=== PATIENT | female | born 1950 | race Caucasian/White ===

== ENCOUNTER → 2016-11-09 | Outpatient (REF) | payer OTHER | LOC: M LAB REF 12:24 | PROVIDERS: ATTEND Internal Medicine Medical Oncology | DX: D69.6 Thrombocytopenia, unspecified (principal) ==

== ENCOUNTER → 2018-06-06 | Outpatient (CLI) | payer MEDICARE | LOC: M RAD 12:48 | DX: Z12.2 Encounter for screening for malignant neoplasm of respiratory organs (principal); Z87.891 Personal history of nicotine dependence; R91.8 Other nonspecific abnormal finding of lung field; K75.3 Granulomatous hepatitis, not elsewhere classified | CPT/HCPCS: G0297 ==

== ENCOUNTER → 2019-01-13 | Outpatient (CLI) | payer MEDICARE ==
[~2019-01-13] MED LIST: AMLO5TAB6 PO; ATEN50TA2 PO; ATOR1TAB19 PO; CYMB60CA3 PO; ERGO500014 PO; ESTR125TA PO; FENO160T10 PO; FLON1SPR NARES; LEVO112T2 PO; LIDO5OIN19 TOP; LORA-243 PO; MONT10TA2 PO; OMEP-218 PO; SYMB80INH INH; TRAM50TA2 PO; VENTAER INH
--- NOTE | 2019-01-13 09:32 | REP ---
ULTRASOUND ABDOMEN: Real-time sonographic evaluation of abdomen is performed. The patient has had a prior cholecystectomy. There is no intrahepatic or extrahepatic biliary dilatation, common bile duct measuring 7 mm. Liver and pancreas demonstrate homogeneous echotexture with no gross mass. The spleen is not enlarged measuring 8.5 cm in length. Calcified granulomas are seen in the spleen. The kidneys are normal in size and echotexture, right kidney measuring 10.5 x 4.8 x 5.7 cm and left kidney 10.6 x 4.0 x 4.6 cm. There is no renal mass, hydronephrosis or nephrolithiasis. Abdominal aorta is normal in caliber with no aneurysm, proximally measuring 2.4 cm in maximum AP dimension and distally 1.6 cm. No ascites is seen. IMPRESSION: Status post cholecystectomy without free fluid or biliary dilatation. Calcified granulomas in the spleen. No splenomegaly. Electronically Signed by Eddie Bell MD 01/15/2019 09:52 A
== END ==
LOC: M RAD 07:35
PROVIDERS: ATTEND Internal Medicine Hematology & Oncology
DX: D47.3 Essential (hemorrhagic) thrombocythemia (principal); D72.829 Elevated white blood cell count, unspecified; Z90.49 Acquired absence of other specified parts of digestive tract

== ENCOUNTER → 2019-03-07 | Outpatient (CLI) | payer MEDICARE ==
[~2019-03-07] MED LIST changes: -ERGO500014 PO; +GASTROGRAFIN SOLUTION 30ML (Q9963) As Ordered ONE; +ISOVUE-370 76% 100ML VIAL (Q9967) As Ordered ONE; +LYRI225C PO; +VITA500045 PO
--- NOTE | 2019-03-07 15:53 | REP ---
HISTORY: Growing pain. COMPARISON: 08/07/2016 CONTRAST: 100 mL [id number] The pelvis bowel loops and their mesenteries are within normal limits. There is no free pelvis fluid or air. 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 This does compress the michael-right lateral urinary bladder, status quo and has seemingly a slight compressive effect on the sigmoid colon, status quo. No abnormal enhancing pelvic masses are present. There is no pelvic sidewall adenopathy. Bone window technique throughout the exam shows the osseous structures to be stable and intact. IMPRESSION: Increased pelvic adipose tissue, unchanged from the prior exam as described above. Electronically Signed by Aron Thomas DO 03/13/2019 02:35 P
== END ==
LOC: M RAD 12:06
PROVIDERS: ATTEND Internal Medicine Hematology & Oncology
DX: E65 Localized adiposity (principal)
CPT/HCPCS: 72193; Q9963; Q9967

== ENCOUNTER → 2019-06-11 | Outpatient (CLI) | payer MEDICARE ==
[~2019-06-11] MED LIST changes: -GASTROGRAFIN SOLUTION 30ML (Q9963) As Ordered ONE; -ISOVUE-370 76% 100ML VIAL (Q9967) As Ordered ONE
--- NOTE | 2019-06-11 18:24 | REP ---
Low-dose noncontrast CT study of the chest: Lung cancer screening study. History: Personal history of nicotine dependence. Comparison CT study is a screening exam from June 06, 2018. There is also a chest CT study from March 12, 2015 and another from August 25, 2013. Lastly, there is a screening exam from February 20, 2013. CT findings: There are scattered emphysematous changes throughout the upper lobes bilaterally as before. There has been no change in the two adjacent left upper lobe lung nodules in the interval since the 2013 prior exams. These appear to be calcified on today's study. No new pulmonary nodule is appreciated. There is a calcification again noted in the dome of the diaphragm which may be calcific pleural plaquing or a granulomatous calcification in the liver parenchyma at the dome of the diaphragm. There is mild vascular calcification visible. There are clips in the gallbladder fossa. Impression: Lung RADS category II benign findings. Repeat screening exam suggested 1 year. Emphysematous changes. Electronically Signed by Miguel Galdamez MD 06/11/2019 09:11 P
== END ==
LOC: M RAD 10:18
PROVIDERS: ATTEND Internal Medicine Pulmonary Disease
DX: Z12.2 Encounter for screening for malignant neoplasm of respiratory organs (principal); Z87.891 Personal history of nicotine dependence

== ENCOUNTER → 2020-06-30 | Outpatient (CLI) | payer MEDICARE ==
[~2020-06-30] MED LIST changes: +AMLO1TAB24 PO; -AMLO5TAB6 PO; +BUDE180INH INH; -MONT10TA2 PO; +MONT10TA4 PO; +SPIR1AER IN
--- NOTE | 2020-07-28 07:26 | REP ---
LOW-DOSE LUNG SCREENING CT CLINICAL: Nicotine dependence. COMPARISON: 06/11/2019. TECHNIQUE: Axial noncontrast images from the thoracic inlet to the upper abdomen using low-dose lung screening technique. FINDINGS: Moderate to advanced emphysematous changes primarily involving the bilateral upper lung zones along with minimal scarring/fibrosis and two small calcified left upper lobe nodules remain essentially stable. A calcification along the dome of the right diaphragm is unchanged. No acute consolidation or significant nodule/mass. No effusion. No pneumothorax. Mediastinal and hilar adenopathy is again suggested and essentially unchanged. Atherosclerotic changes to the thoracic aorta and coronary arteries again noted. IMPRESSION: 1. Emphysematous changes with scattered fibrosis and scarring along with small stable calcified granulomata again noted. 2. No significant nodule or mass. 3. Lung-RADS Category 2. Annual low dose surveillance recommended. MTDD
== END ==
LOC: M RAD 12:57
PROVIDERS: ATTEND Internal Medicine Pulmonary Disease
DX: F17.218 Nicotine dependence, cigarettes, with other nicotine-induced disorders (principal); R91.8 Other nonspecific abnormal finding of lung field

== ENCOUNTER → 2021-04-28 | Outpatient (CLI) | payer MEDICARE ==
[~2021-04-28] MED LIST changes: +ASMA1AER3 INH; +COVI100V IM; +ERGO500029 PO; +LEVO500T3 PO; +MONT10TA10 PO; -MONT10TA4 PO; +SUCR1TAB56 PO
--- NOTE | 2021-04-28 12:07 | REP ---
INDICATION: ABN FINDING OF LUNG COMPARISON: 06/30/2020 TECHNIQUE: Axial noncontrast images from the thoracic inlet to the upper abdomen with coronal and sagittal reformations. This CT examination was performed using the following dose reduction techniques: Automated exposure control, adjustment of mA and/or kv according to the patient's size, and use of iterative reconstruction technique. FINDINGS: Advanced COPD/emphysematous changes with bronchiectasis and scarring and few scattered calcified granulomata again noted. No acute consolidation, significant nodule or mass. No effusion. No pneumothorax. Tracheobronchial tree is patent. Mediastinal lymph nodes remain stable. Atherosclerotic changes to the thoracic aorta and coronary arteries again noted. Mild cardiomegaly without pericardial effusion. Surrounding musculoskeletal structures are intact. Limited upper abdomen demonstrates normal bilateral adrenal glands. IMPRESSION: 1. Relatively stable chronic COPD/emphysematous changes with bronchiectasis and scattered scarring. 2. No significant mediastinal or pleuroparenchymal process otherwise appreciated. <Electronically signed by Dc Lucio > 04/28/21 [id number]
== END ==
LOC: M RAD 11:28
PROVIDERS: ATTEND Internal Medicine Pulmonary Disease
DX: R91.8 Other nonspecific abnormal finding of lung field (principal); J44.9 Chronic obstructive pulmonary disease, unspecified

== ENCOUNTER → 2021-05-30 | Outpatient (CLI) | payer MEDICARE | LOC: M LABSMTC 11:01 | PROVIDERS: ATTEND Anesthesiology | DX: Z01.812 Encounter for preprocedural laboratory examination (principal); Z20.822 Contact with and (suspected) exposure to COVID-19 ==

== ENCOUNTER 2021-06-03 09:16 | Day surgery (SDC) | payer MEDICARE ==
[~2021-06-03] VITALS: Ht 165.1 cm; Wt 78.5 kg
[~2021-06-03 09:16] MED LIST changes: -CYMB60CA3 PO; +CYMB60CA4 PO; -LEVO500T3 PO; +LEVO500T4 PO; +LIDOCAINE 2% 100MG/5ML SDV (FOR ANES.) As Ordered ONE; -MONT10TA10 PO; +MONT10TA97 PO; +NS 1,000 ML IV ONE; +OMEP-173 PO; -OMEP-218 PO; +fentaNYL 100 MCG/2 ML INJECTION As Ordered ONE; +propofoL 500 MG/50 ML VIAL As Ordered ONE
[2021-06-03 11:33] VITALS: BP 129/92
[2021-09-06] MEDS ORDERED: LEVO750T13 PO (13:23)
[2021-09-06] MEDS ORDERED: LEVO125T4 PO (13:23)
== END 2021-06-03 11:45 | disposition home or self-care (01) ==
LOC: M OPP 09:16
PROVIDERS: ATTEND Internal Medicine Gastroenterology
DX: Z12.11 Encounter for screening for malignant neoplasm of colon (principal); D12.6 Benign neoplasm of colon, unspecified; K57.30 Diverticulosis of large intestine without perforation or abscess without bleeding; K64.8 Other hemorrhoids; F17.210 Nicotine dependence, cigarettes, uncomplicated; Z79.899 Other long term (current) drug therapy; Z88.1 Allergy status to other antibiotic agents; Z88.5 Allergy status to narcotic agent; Z88.8 Allergy status to other drugs, medicaments and biological substances
CPT/HCPCS: 45385; 88305; J3010

== ENCOUNTER → 2021-12-13 | Outpatient (CLI) | payer MEDICARE ==
[~2021-12-13] MED LIST changes: +LEVO125T4 PO; +LEVO750T13 PO; -LIDOCAINE 2% 100MG/5ML SDV (FOR ANES.) As Ordered ONE; -NS 1,000 ML IV ONE; -fentaNYL 100 MCG/2 ML INJECTION As Ordered ONE; -propofoL 500 MG/50 ML VIAL As Ordered ONE
[2021-12-13 16:11] LABS: IMMUNOGLOBULIN G 551 MG/DL (681-1648); IMMUNOGLOBULIN M 29.6 MG/DL (40-230)
== END ==
LOC: M LAB 15:03
PROVIDERS: ATTEND Allergy & Immunology Allergy
DX: D84.9 Immunodeficiency, unspecified (principal)

== ENCOUNTER → 2022-06-05 | Outpatient (CLI) | payer MEDICARE ==
[~2022-06-05] MED LIST changes: +LEVO1TAB39 PO; +LEVO1TAB40 PO; -LEVO500T4 PO; -LEVO750T13 PO
== END ==
LOC: M RAD 14:18
PROVIDERS: ATTEND Internal Medicine Pulmonary Disease
DX: Z87.891 Personal history of nicotine dependence (principal); J84.10 Pulmonary fibrosis, unspecified; R91.8 Other nonspecific abnormal finding of lung field

== ENCOUNTER → 2022-07-24 | Outpatient (CLI) | payer MEDICARE | LOC: M LAB 14:20 | PROVIDERS: ATTEND Allergy & Immunology Allergy | DX: D84.9 Immunodeficiency, unspecified (principal) ==

== ENCOUNTER → 2022-12-11 | Outpatient (CLI) | payer MEDICARE ==
[~2022-12-11] MED LIST changes: -ASMA1AER3 INH; +LEVO150T7 PO; +MOME13HF5 INH
== END ==
LOC: M PLAIMG 13:22
PROVIDERS: ATTEND Internal Medicine Pulmonary Disease
DX: J43.1 Panlobular emphysema (principal)

== ENCOUNTER → 2022-12-25 | Outpatient (CLI) | payer MEDICARE ==
[2022-12-25 10:55] LABS: HEMATOCRIT 43.5 % (36.0-47.0); HEMOGLOBIN 14.6 g/dl (12.0-15.5); MEAN CORPUSCULAR HEMOGLOBIN 29.4 pg (27.0-33.0); MEAN CORPUSCULAR HGB CONC 33.6 g/dl (32.0-36.5); MEAN CORPUSCULAR VOLUME 87.5 fl (80.0-96.0); PLATELET COUNT, AUTOMATED 547 10^3/uL (150-450); RED BLOOD COUNT 4.97 10^6/uL (4.00-5.40); WHITE BLOOD COUNT 11.6 10^3/uL (4.0-10.0)
[2022-12-25 11:05] LABS: ERYTHROCYTE SEDIMENTATION RATE 30 mm/hr (0-30)
[2022-12-25 11:06] LABS: INR 0.91; PROTHROMBIN TIME 12.5 SECONDS (12.5-14.5)
[2022-12-25 11:34] LABS: ALBUMIN 3.2 G/DL (3.2-5.2); ALKALINE PHOSPHATASE 66 U/L (46-116); ALT/SGPT 15 U/L (7.0-40); AST/SGOT 27 U/L (<34); BILIRUBIN,TOTAL 0.4 MG/DL (0.3-1.2); BLOOD UREA NITROGEN 22 MG/DL (9-23); CALCIUM LEVEL 9.4 MG/DL (8.3-10.6); CARBON DIOXIDE LEVEL 24 MMOL/L (20-31); CHLORIDE LEVEL 103 MMOL/L (98-107); CREATININE FOR GFR 0.69 MG/DL (0.55-1.30); GLOMERULAR FILTRATION RATE > 60.0 (>39); GLUCOSE, FASTING 99 MG/DL (74-106); POTASSIUM SERUM 4.3 MMOL/L (3.5-5.1); SODIUM LEVEL 135 MMOL/L (136-145); TOTAL PROTEIN 6.7 G/DL (5.7-8.2)
== END ==
LOC: M LAB 10:14
PROVIDERS: ATTEND Orthopaedic Surgery
DX: M17.12 Unilateral primary osteoarthritis, left knee (principal); Z79.01 Long term (current) use of anticoagulants

== ENCOUNTER → 2023-03-14 | Outpatient (CLI) | payer MEDICARE ==
[2023-03-14 11:09] LABS: IMMUNOGLOBULIN A 265.6 MG/DL (40-350); IMMUNOGLOBULIN M 36.2 MG/DL (50-300)
== END ==
LOC: M PLALAB 08:03
PROVIDERS: ATTEND Allergy & Immunology
DX: D83.9 Common variable immunodeficiency, unspecified (principal)

== ENCOUNTER → 2023-07-06 | Outpatient (CLI) | payer MEDICARE | LOC: M RAD 08:49 | PROVIDERS: ATTEND Internal Medicine Pulmonary Disease | DX: Z12.2 Encounter for screening for malignant neoplasm of respiratory organs (principal); Z87.891 Personal history of nicotine dependence; J44.9 Chronic obstructive pulmonary disease, unspecified ==

== ENCOUNTER → 2023-08-02 | Outpatient (CLI) | payer MEDICARE ==
[2023-08-02 15:22] LABS: BASO # 0.1 10^3/uL (0.0-0.2); BASO % 0.7 % (0.0-1.0); EOS # 0.1 10^3/uL (0.0-0.5); EOS % 0.8 % (0.0-3.0); HEMOGLOBIN 14.3 g/dl (12.0-15.5); LYMPH # 2.7 10^3/uL (1.5-5.0); LYMPH % 20.1 % (24.0-44.0); MEAN CORPUSCULAR HGB CONC 32.5 g/dl (32.0-36.5); MEAN CORPUSCULAR VOLUME 89.2 fl (80.0-96.0); MONO # 0.9 10^3/uL (0.0-0.8); MONO % 6.5 % (2.0-8.0); NEUTROPHILS # 9.7 10^3/uL (1.5-8.5); NEUTROPHILS % 71.5 % (36.0-66.0); PLATELET COUNT, AUTOMATED 592 10^3/uL (150-450); RED BLOOD COUNT 4.93 10^6/uL (4.00-5.40); WHITE BLOOD COUNT 13.5 10^3/uL (4.0-10.0)
[2023-08-02 15:38] LABS: ERYTHROCYTE SEDIMENTATION RATE 18 mm/hr (0-30)
[2023-08-02 15:43] LABS: ALBUMIN 3.4 G/DL (3.2-5.2); ALKALINE PHOSPHATASE 64 U/L (46-116); ALT/SGPT 16 U/L (7.0-40); AST/SGOT 20 U/L (<34); BILIRUBIN,TOTAL 0.6 MG/DL (0.3-1.2); BLOOD UREA NITROGEN 19 MG/DL (9-23); CALCIUM LEVEL 9.7 MG/DL (8.3-10.6); CARBON DIOXIDE LEVEL 28 MMOL/L (20-31); CHLORIDE LEVEL 102 MMOL/L (98-107); CREATININE FOR GFR 0.79 MG/DL (0.55-1.30); GLOMERULAR FILTRATION RATE > 60.0 (>39); GLUCOSE, FASTING 67 MG/DL (74-106); POTASSIUM SERUM 5.3 MMOL/L (3.5-5.1); SODIUM LEVEL 137 MMOL/L (136-145); TOTAL PROTEIN 6.8 G/DL (5.7-8.2)
== END ==
LOC: M PLALAB 11:03
PROVIDERS: ATTEND Internal Medicine Rheumatology
DX: M35.3 Polymyalgia rheumatica (principal); R79.82 Elevated C-reactive protein (CRP); R53.83 Other fatigue

== ENCOUNTER → 2023-08-06 | Outpatient (CLI) | payer MEDICARE ==
[~2023-08-06] MED LIST changes: +ASPI81TA26 PO; +CETI-24 PO; +FLUT1BLS8 IH; +IPRA6SP NARES; +LIDO1PAD TOP; +LIDOCAINE 1% MDV 20ML VIAL As Ordered ONE; +MM S100C PO; +OSTETAB3 PO; +SYNT175T2 PO; +TURM500C3 PO; +VITA-183 PO; +VITMTA PO; +chantix PO
[2023-08-06 08:30] VITALS: TEMP 98.9
[2023-08-06 09:43] LABS: LIPASE 38 U/L (12-53)
[2023-08-06 09:45] LABS: AMYLASE 51 U/L (30-118); IRON (FE) 76 UG/DL (50-170); PERCENT SATURATION 20.2 % (13.2-45.0); TOTAL IRON BINDING CAPACITY 376 UG/DL (250-425)
[2023-08-06 09:47] LABS: FERRITIN 322.6 NG/ML (7.3-270.7)
[2023-08-06 09:49] LABS: FOLATE > 24.00 NG/ML (>5.4)
[2023-08-06 11:40] VITALS: BP 157/83; O2SAT 96
== END ==
LOC: M IRPRO 07:54
PROVIDERS: ATTEND Internal Medicine Gastroenterology
DX: E83.119 Hemochromatosis, unspecified (principal); D75.839 Thrombocytosis, unspecified

== ENCOUNTER → 2024-01-09 | Outpatient (CLI) | payer OTHER, MEDICARE ==
[~2024-01-09] MED LIST changes: +GABA-282; +LEVO150T7; -LIDOCAINE 1% MDV 20ML VIAL As Ordered ONE
== END ==
LOC: M PLAIMG 14:31
PROVIDERS: ATTEND Physical Medicine & Rehabilitation Pain Medicine
DX: M54.16 Radiculopathy, lumbar region (principal)

== ENCOUNTER → 2024-09-01 | Outpatient (CLI) | payer MEDICARE ==
[~2024-09-01] MED LIST changes: +GABA-1172; -GABA-282
== END ==
LOC: M RAD 14:43
PROVIDERS: ATTEND Internal Medicine Pulmonary Disease
DX: Z87.891 Personal history of nicotine dependence (principal)

== ENCOUNTER → 2025-09-21 | Outpatient (CLI) | payer MEDICARE ==
[~2025-09-21] MED LIST changes: +BUDE180A2 INH; -BUDE180INH INH; +D31000CA6 PO; +TURM1CAP7 PO; -TURM500C3 PO; -VITA-183 PO
== END ==
LOC: M RAD 12:33
PROVIDERS: ATTEND Internal Medicine Pulmonary Disease
DX: Z87.891 Personal history of nicotine dependence (principal)

== ENCOUNTER → 2025-10-09 | Outpatient (CLI) | payer MEDICARE | LOC: M RAD 09:44 | PROVIDERS: ATTEND Physician Assistant | DX: Z96.652 Presence of left artificial knee joint (principal) | CPT/HCPCS: 78315; A9503 ==

== ENCOUNTER → 2025-10-28 | Outpatient (CLI) | payer MEDICARE ==
[~2025-10-28] MED LIST changes: +ISOVUE-370 76% 100 ML VIAL As Ordered ONE
== END ==
LOC: M RAD 09:13
PROVIDERS: ATTEND Internal Medicine Gastroenterology
DX: R11.2 Nausea with vomiting, unspecified (principal); R42 Dizziness and giddiness; K21.9 Gastro-esophageal reflux disease without esophagitis; K59.00 Constipation, unspecified; E83.119 Hemochromatosis, unspecified; R09.89 Other specified symptoms and signs involving the circulatory and respiratory systems
CPT/HCPCS: 70470; 82565; 93979; Q9967